=== PATIENT | male | born 1965 | race Two or more races ===

== ENCOUNTER → 2018-02-14 | Outpatient (REF) ==
[2016-04-14 15:52] VITALS: BMI 34.0
[~2018-02-14] MED LIST: ALLO-2; AMLO-96; ASPI-292 PO; ASPI-757 PO; ASPI81TA94 PO; ATOR20TA22 PO; ATOR40TA69 PO; BUPXL150 PO; BUS5 PO; DIA5 PO; DIC75 PO; DOCU-416 PO; EZET1TAB53 PO; HYDR-389 PO; HYDR12.558 PO; IBUP800T37 PO; LEV100 PO; LEVO200T50 PO; LOR5/325 PO; LORA-1221 PO; LORA-1455 PO; LOTE5DRO8; METO100T20 PO; METXL50 PO; OMEP40CA48; ONDA4TAB PO; OXYC-823 PO; PAR20 PO; SIMV-44 PO; UBID100C48 PO; VALS320T4 PO; VALS40TA6 PO
== END ==
LOC: AUD 10:15
PROVIDERS: ATTEND Internal Medicine
DX: Z01.10 Encounter for examination of ears and hearing without abnormal findings (principal)
CPT/HCPCS: 92552

== ENCOUNTER → 2019-02-22 | Outpatient (REF) ==
[2016-04-14 15:52] VITALS: BMI 34.0
[~2019-02-22] MED LIST changes: +AMLO-125; -AMLO-96; -VALS320T4 PO; +VALS320T5 PO
== END ==
LOC: AUD 08:30
PROVIDERS: ATTEND Nurse Practitioner Family
DX: Z01.12 Encounter for hearing conservation and treatment (principal)
CPT/HCPCS: 92552